=== PATIENT | male | born 1950 | race Caucasian/White ===

== ENCOUNTER 2016-08-09 12:20 | Day surgery (SDC) | payer MEDICARE, OTHER ==
[2016-08-09] MEDS ORDERED: GLUCAGON,HUMAN RECOMBINANT 1 MG VIAL IV ONE (12:44)
[2016-08-09] MEDS ORDERED: GLUCAGON,HUMAN RECOMBINANT 1 MG VIAL ONE (12:52)
--- NOTE | 2016-08-09 13:05 | ERNOTE ---
Medical Problem HPI - Narrative Date of Service: 08/09/16 - General Chief Complaint: General Assessment Time Seen by Provider: 08/09/16 12:37 Source: patient Exam Limitations: no limitations - Immun/Allergies/Home Medications Allergies/Adverse Reactions: Allergies No Known Allergies Allergy (Verified 08/09/16 12:35) Home Medications: HOME MEDICATIONS Lisinopril [Prinivil] 20 mg PO DAILY 07/17/12 [Last Taken Unknown] Simvastatin [Zocor] 40 mg PO HS 07/17/12 [Last Taken Unknown] Aspirin [Aspirin Enteric Coated] 81 mg PO DAILY 02/17/13 [Last Taken Unknown] Gabapentin [Neurontin (Gabapentin)] 300 mg PO HS 02/17/13 [Last Taken Unknown] Hum Insulin NPH/Reg Insulin Hm [Humulin 70-30 Pen] 8 unit SQ QPM 02/17/13 [Last Taken Unknown] Hum Insulin NPH/Reg Insulin Hm [Humulin 70-30 Pen] 16 unit SQ QAM 02/17/13 [ Last Taken Unknown] Insulin Glargine,Hum.rec.anlog [Lantus Solostar] 25 unit SQ DAILY 02/17/13 [ Last Taken Unknown] Pyridoxine HCl [Vitamin B-6] 100 mg PO BID 05/21/14 [Last Taken Unknown] - History of Present History Narrative: Pt. comes in with c/o food being stuck in his esophagus since 0630 this morning. Pt. states that he has had this problem previously and has had to have an EGD to assist with food removal. Pt. states that he tried to drink water and he was not able to swallow it and his saliva also accumulates and he has to spit it back up as well. Review of Systems - Review of Systems Constitutional: Present: no symptoms reported. Absent: recent illness, fever, chills, fatigue, malaise EYE: Present: no symptoms reported ENT: Present: no symptoms reported. Absent: nose pain, nose congestion, nasal drainage, sore throat Respiratory: Present: no symptoms reported. Absent: shortness of breath, cough , wheezing Cardiology: Present: no symptoms reported. Absent: chest pain, palpitations, edema Gastrointestinal/Abdominal: Present: other - food stuck in esophagus. Absent: nausea, vomiting, diarrhea Genitourinary: Present: no symptoms reported Musculoskeletal: Present: no symptoms reported. Absent: back pain, joint pain Skin: Present: no symptoms reported Neurological: Present: no symptoms reported. Absent: headache, dizziness/light- headedness, numbness, tingling All Other Systems: All systems neg except as marked - Patient's Past Medical History Patient History - Medical: Diabetes Type 2 Insulin Dependent Patient History - Cardiac/Respiratory: Hypertension, Hyperlipidemia Patient History - Cancer: No Hx of Cancer Patient History - Surgical Procedures: Other - Social History Living Situations: home Physical Exam - Physical Exam General Appearance: Present: wd/wn, alert, no apparent distress Eye Exam: Normal inspection: bilateral, PERRL: bilateral, EOMI: bilateral Ears, Nose, Throat: Present: normal ENT inspection, hearing grossly normal, normal pharynx Neck: Present: normal inspection, nontender. Absent: lymphadenopathy (R), lymphadenopathy (L) Respiratory: Present: no respiratory distress, normal breath sounds, no accessory muscle use, chest nontender, lungs clear Cardiovascular/Chest: Present: regular rate, rhythm, no murmur, normal peripheral pulses Gastrointestinal/Abdominal: Present: normal bowel sounds, nontender, nondistended, soft, no organomegaly Back Exam: Present: normal inspection Extremity Exam: Present: normal inspection Neurological Exam: Present: alert, oriented, normal mood/affect, no motor/ sensory deficits Skin Exam: Present: normal color, warm/dry. Absent: pallor, skin rash ED Progress - Date and Time Seen: Date and Time: 08/09/16 13:02 Attempted glucagon for food bolus impaction, unsuccessful so consulted Dr Andrade and he will come see the pt. 08/09/16 13:58 Dr Andrade in to see pt. will discharge pt. to inpatient care for egd with dilatation. - Vital Signs Patient's Vital Signs:: I have reviewed the patient's vital signs. Vital Signs: Vital Signs 08/09/16 12:31 Temperature 35.9 C L Pulse Rate 85 Respiratory 12 Rate Blood Pressure 150/84 O2 Sat by Pulse 99 Oximetry - Progress/Reassessment Chief Complaint: General Assessment Departure - Departure Clinical Impression: Foreign body in esophagus Qualifiers: Encounter type: initial encounter Qualified Code(s): T18.108A - Unspecified foreign body in esophagus causing other injury, initial encounter Disposition: [facility] [place] [facility] Condition: Good Referrals: Homero Abreu MD [Primary Care Provider] -
--- NOTE | 2016-08-09 14:00 | HP ---
Chief Complaint - Chief Complaint Date of Service: 08/09/16 Time of Service: 13:48 Chief Complaint: omlet stuck History of Present Illness: Was eating an omlet at 6;30 am and it got stuck at subxyphoid level---unable to handle secretions. Was given glucagon in ER and just passed. Long history of GERD with hiatal hernia. Esophageal obstruction from a pill in 2013 and had subsequent EGD and dilation---GE junction required dilation to pass scope and then dilated further to 20mm. He has had progressive solid food dysphagia before the obstruction today. - Patient's Past Medical History Patient History - Medical: Diabetes Type 2 Insulin Dependent Patient History - Cardiac/Respiratory: Hypertension, Hyperlipidemia Patient History - Cancer: No Hx of Cancer Patient History - Surgical Procedures: Other - Family History Family History:: no untoward family reactions to anesthesia, no familial bleeding tendencies - Social History Living Situations: home Review Of Systems (GEN) - Review of Systems Generalized/Overall Review: Present: No Symptoms Reported EENTM: Present: No Symptoms Reported Respiratory: Present: No Symptoms Reported. Absent: Cough, Shortness of Breath Cardiac: Present: No Symptoms Reported. Absent: Chest Pain, Palpitations Abdominal: Present: Other - progressive dysphagia for solid food. Absent: Abdominal Pain Genitourinary: Present: Nocturia - up once at night 2AM Musculoskeletal: Present: Joint Pain, Other - left knee pain and Dupuytren's contracture right 4th and 5th fingers Skin: Present: No Symptoms Reported Allergies/Adverse Reactions: Allergies Allergy/AdvReac Type Severity Reaction Status Date / Time No Known Allergies Allergy Verified 08/09/16 12:35 Home Medications: HOME MEDICATIONS Lisinopril [Prinivil] 20 mg PO DAILY 07/17/12 [Last Taken Unknown] Simvastatin [Zocor] 40 mg PO HS 07/17/12 [Last Taken Unknown] Aspirin [Aspirin Enteric Coated] 81 mg PO DAILY 02/17/13 [Last Taken Unknown] Gabapentin [Neurontin (Gabapentin)] 300 mg PO HS 02/17/13 [Last Taken Unknown] Hum Insulin NPH/Reg Insulin Hm [Humulin 70-30 Pen] 8 unit SQ QPM 02/17/13 [Last Taken Unknown] Hum Insulin NPH/Reg Insulin Hm [Humulin 70-30 Pen] 16 unit SQ QAM 02/17/13 [ Last Taken Unknown] Insulin Glargine,Hum.rec.anlog [Lantus Solostar] 25 unit SQ DAILY 02/17/13 [ Last Taken Unknown] Pyridoxine HCl [Vitamin B-6] 100 mg PO BID 05/21/14 [Last Taken Unknown] Exam - Exam Vital Signs: Vital Signs - Last Taken Temp 35.9 C L 08/09/16 12:31 Pulse 85 08/09/16 12:31 Resp 12 08/09/16 12:31 BP 150/84 08/09/16 12:31 Pulse Ox 99 08/09/16 12:31 Constitutional: Present: Alert, Oriented x3, Cooperative, No distress ENT Exam: Present: normal ENT inspection, other - multiple missing teeth--done loose Eye Exam: bilateral eye: normal inspection Neck: Present: full range of motion Back Exam: Present: normal inspection Respiratory: Present: lungs clear, normal breath sounds, no respiratory distress Cardiovascular/Chest: Present: normal peripheral pulses, regular rate, rhythm, no JVD, no murmur Peripheral Pulses: carotid (R): 4+, carotid (L): 4+, dorsalis-pedis (R): 4+, dorsalis-pedis (L): 4+, radial (R): 4+, radial (L): 4+ Abdomen: Present: Normal bowel sounds, soft, nontender, other - obese /Rectal: Present: Exam deferred Extremity: Present: normal range of motion, normal capillary refill, other - Dupuytren's contracture right 4th and 5th fingers Skin Exam: Present: normal color Neurologic: Present: segmental paving supervisor II-XII nml as tested, normal cerebellar test, no motor/ sensory deficits Appearance: Present: appropriate appearance, appropriate insight Eye contact: Present: cooperative, good eye contact, normal speech Thoughts: Present: normal thought pattern Assessment/Plan - Assessment/Plan (1) Foreign body in esophagus Assessment: He has passed the FB, however has history of hiatal hernia and esophageal stricture requiring dilation and progressive dysphagia before today's episode of obstruction. EGD with dilation was explained and he is familiar with the procedure including risks and possible complications. Questions answered and informed consent obtained for EGD with dilation. Problem: Acute
[2016-08-09] MEDS ORDERED: RINGERS SOLUTION,LACTATED 1,000 ML IV PRN (14:02)
[2016-08-09] MEDS ORDERED: RINGERS SOLUTION,LACTATED 1,000 ML IV ONE (16:00)
[2016-08-09] MEDS ORDERED: PANTOPRAZOLE SODIUM 40 MG in NORMAL SALINE 100 ML IV ONE (16:30)
[2016-08-09] MEDS ORDERED: PANTOPRAZOLE SODIUM 40 MG/100 ML PIGGYBACK IV ONE (16:35)
[2016-08-09 17:15] VITALS: BP 153/78
--- NOTE | 2016-08-09 18:30 | OR ---
Operative Report - Dictated Report Narrative: Operative Report Date of operation: 08/09/2016 Preoperative diagnosis: Esophageal stricture with recent obstruction Postoperative diagnosis: Esophagitis with stricture. Hiatal hernia. Gastropathy (pathology and CLOtest pending Operation: EGD with biopsies and esophageal balloon dilation to 18 mm Surgeon: Dr Andrade Anesthesia: TERRY PERKINS CRNA Indications for procedure: The patient is a 66-year-old male presented to the emergency room with symptoms of esophageal obstruction from an omelette. He has a past history of esophageal obstruction and stricture requiring dilation. While waiting for the procedure in the emergency room, the material passed from the esophagus and he is brought for exam. Findings: Esophagitis with stricture and possible Campos's esophagus ( pathology pending) successfully dilated to 18 mm. Hiatal hernia. Gastropathy ( pathology and CLOtest pending) Narrative of procedure: The patient was identified preoperatively, and prior to the administration of anesthetic a multidisciplinary timeout was observed With the patient in the recumbent position, a bite-block was placed, intravenous sedation was administered, and the patient's eyes covered with a towel. The flexible fiberoptic gastroscope was advanced into the posterior pharynx which appeared normal. The supraglottic larynx appeared normal. The cords appeared normal, moved well, and opposed in the midline. The scope was advanced under direct vision into the proximal esophagus which appeared normal. The esophagus appeared freely distensible with normal mucosa. The esophageal mucosa appeared normal down to the gastroesophageal junction which was located in the chest. There was marked inflammation and stricture formation with exuberant tissue suggestive of Campos's esophagus. The opening was too small to admit the gastroscope. A balloon dilator was placed across the stricture which was dilated to 15 mm. There was minimal bleeding. The scope could then be advanced through the area into a moderate sized sliding hiatal hernia and then into the stomach proper. The stomach was then insufflated with air. There was cabrera gastritic erythema present but no mimi ulcers or neoplastic lesions were apparent including a retroflexed view of the gastric fundus. The hiatal hernia was clearly demonstrated. The scope was redirected toward the pylorus. The pylorus appeared patent. The scope was advanced into the duodenal bulb which appeared normal. The scope was advanced further to the horizontal portion of the duodenum which appeared normal, specifically the villous architecture appeared well preserved and clear bile was present. The scope was slowly withdrawn through the duodenal bulb with confirmation that no active ulcer was present. The scope was withdrawn into the stomach and member service representative biopsies of gastric mucosa obtained for CLOtest and pathology. The biopsy sites were seen to be hemostatic. The insufflated air was removed from the stomach and the scope withdrawn to just above the GE junction. A new balloon was placed across this area and inflated to 18 mm. There was no appreciable bleeding. Biopsies were obtained. The biopsy sites were seen to be hemostatic. The area appeared widely patent. The scope was readvanced into the stomach which was emptied of insufflated air. The scope was withdrawn slowly through the dilated area with confirmation of hemostasis and then withdrawn from the patient, and the procedure terminated. The patient tolerated the anesthetic and procedure well without complication and was transferred back to the ambulatory surgery area awake and in stable condition. The patient remained stable throughout a period of postoperative observation, was able to tolerate by mouth intake, and was up without assistance. I shared the operative findings with him, and he was given copies of the photographs which appear in the medical record. He was given a single dose of Protonix 40 mg IV prior to discharge. He was discharged home with instructions not to engage in hazardous activity today, but may return to normal activity tomorrow. He is to maintain a liquid or soft diet for 24 hours and then advance diet as tolerated. He is to continue medications as listed in the history and physical exam. I made arrangements to contact the patient with biopsy reports and will make further recommendation based upon that result. Reviewed and electronically signed
== END 2016-08-09 14:01 | disposition home or self-care (01) ==
LOC: ER 12:20 → AMB 14:00
PROVIDERS: ATTEND Surgery
PROC: 0DB68ZX Excision of Stomach, Via Natural or Artificial Opening Endoscopic, Diagnostic (ICD-10-PCS; 2016-08-09)
PROC: 0D748ZZ Dilation of Esophagogastric Junction, Via Natural or Artificial Opening Endoscopic (ICD-10-PCS; 2016-08-09)
PROC: 0DB48ZX Excision of Esophagogastric Junction, Via Natural or Artificial Opening Endoscopic, Diagnostic (ICD-10-PCS; principal; 2016-08-09 14:45)
DX: K22.2 Esophageal obstruction (principal); K44.9 Diaphragmatic hernia without obstruction or gangrene; K22.70 Barrett's esophagus without dysplasia; K21.0 Gastro-esophageal reflux disease with esophagitis; E11.9 Type 2 diabetes mellitus without complications; I10 Essential (primary) hypertension; E78.5 Hyperlipidemia, unspecified; Z68.31 Body mass index [BMI] 31.0-31.9, adult

== ENCOUNTER 2017-05-01 22:14 | Day surgery (SDC) | payer MEDICARE, OTHER ==
[~2017-05-01 22:14] MED LIST: RINGER'S SOLUTION,LACTATED 1,000 ML IV ONE
[2017-05-01] MEDS ORDERED: GLUCAGON,HUMAN RECOMBINANT 1 MG VIAL ONE (22:34)
[2017-05-01] MEDS ORDERED: GLUCAGON,HUMAN RECOMBINANT 1 MG VIAL IV ONE (22:35)
[2017-05-01] MEDS ORDERED: DEXTROSE 4 GM/TAB BTL PO ONE (22:36)
[2017-05-01] MEDS ORDERED: DEXTROSE 5 % IN WATER 1,000 ML IV PRN (23:00)
--- NOTE | 2017-05-01 23:02 | ERNOTE ---
Medical Problem HPI - Narrative Date of Service: 05/01/17 - General Chief Complaint: Foreign Body Time Seen by Provider: 05/01/17 22:58 - Immun/Allergies/Home Medications Immunizations: IMMUNIZATION HX Immunizations Up to Date Yes History of Influenza Vaccine No Hx Pneumococcal Vaccination Yes Allergies/Adverse Reactions: Allergies No Known Allergies Allergy (Verified 05/01/17 22:24) Home Medications: HOME MEDICATIONS Lisinopril [Prinivil] 20 mg PO DAILY 07/17/12 [Last Taken Unknown] Simvastatin [Zocor] 40 mg PO HS 07/17/12 [Last Taken Unknown] Aspirin [Aspirin Enteric Coated] 81 mg PO DAILY 02/17/13 [Last Taken Unknown] Hum Insulin NPH/Reg Insulin Hm [Humulin 70-30 Pen] 8 unit SQ QPM 02/17/13 [Last Taken Unknown] Hum Insulin NPH/Reg Insulin Hm [Humulin 70-30 Pen] 16 unit SQ QAM 02/17/13 [ Last Taken Unknown] Insulin Glargine,Hum.rec.anlog [Lantus Solostar] 25 unit SQ DAILY 02/17/13 [ Last Taken Unknown] - History of Present History Narrative: This is a 66-year-old male with a past history of impacted meat bolus is status post dilatation. He comes to the ER proximally 4 hours after eating pork chops. He is unable to swallow anything. The patient did take his insulin right before he ate. He has not been able to eat because of pork Got caught. He has been unable to swallow anything other than a little bit of his secretions. He is feeling a bit shaky. Blood sugar was 67. He has no other complaints Review of Systems - Review of Systems Constitutional: Present: other - just feels shaky EYE: Present: no symptoms reported ENT: Present: no symptoms reported Respiratory: Present: no symptoms reported Cardiology: Present: no symptoms reported Gastrointestinal/Abdominal: Present: no symptoms reported Genitourinary: Present: no symptoms reported Musculoskeletal: Present: no symptoms reported Skin: Present: no symptoms reported Neurological: Present: no symptoms reported Endocrine: Present: no symptoms reported Hematologic/Lymphatic: Present: no symptoms reported Psych: Present: no symptoms reported All Other Systems: All systems neg except as marked - Patient's Past Medical History Patient History - Medical: Diabetes Type 2 Insulin Dependent Patient History - Cardiac/Respiratory: Hypertension, Hyperlipidemia Patient History - Cancer: No Hx of Cancer Patient History - Surgical Procedures: EGD, Orthopedic Patient History - Other: None - Social History Living Situations: home Abuse History: No History of abuse Psych History: No pertinent hx Smoking Status: Never smoker Alcohol Use: none Drug Use: none - Immunizations Immunizations Up to Date: Yes Hx Pneumococcal Vaccination: Yes History of Influenza Vaccine: No Physical Exam - Physical Exam General Appearance: Present: wd/wn, alert, no apparent distress Head Exam: Present: normal inspection, no evidence of injury Eye Exam: Normal inspection: bilateral, PERRL: bilateral Ears, Nose, Throat: Present: normal ENT inspection, normal pharynx Neck: Present: normal inspection, nontender Respiratory: Present: no respiratory distress, normal breath sounds, no accessory muscle use, lungs clear Cardiovascular/Chest: Present: regular rate, rhythm, no murmur, normal peripheral pulses Gastrointestinal/Abdominal: Present: normal bowel sounds, nontender, nondistended, soft Back Exam: Present: normal inspection, normal range of motion, no CVA tenderness Extremity Exam: Present: normal inspection, normal range of motion, no edema Neurological Exam: Present: alert, oriented, normal mood/affect Skin Exam: Present: normal color, warm/dry Lymphatic Exam: Present: no adenopathy ED Progress - Vital Signs Patient's Vital Signs:: I have reviewed the patient's vital signs. Vital Signs: Vital Signs 05/01/17 05/01/17 22:21 22:24 Temperature 36.4 C 36.4 C Pulse Rate 80 80 Respiratory 18 18 Rate Blood Pressure 186/93 186/93 O2 Sat by Pulse 100 100 Oximetry - Progress/Reassessment Chief Complaint: Foreign Body Progress Note-Subjective: 05/01/17 23:00 I informed the surgeon about the patient. He asked me to call in the endoscopy team. The patient failed glucagon. Departure Clinical Impression: Foreign body alimentary tract Qualifiers: Encounter type: initial encounter Qualified Code(s): T18.9XXA - Foreign body of alimentary tract, part unspecified, initial encounter - Departure Disposition: [facility] Condition: Good
[2017-05-01] MEDS ORDERED: DEXTROSE 5%-LACTATED RINGERS 1,000 ML IV PRN (23:16)
[2017-05-01] MEDS ORDERED: ceFAZolin SODIUM 2 GM in DEXTROSE 5 % IN WATER 50 ML IV PRN ×2 (23:19)
[2017-05-01] MEDS ORDERED: ceFAZolin SODIUM/DEXTROSE,ISO 2 GM/50 ML BAG IV SCH (23:45)
--- NOTE | 2017-05-01 23:45 | HP ---
Chief Complaint - Chief Complaint Date of Service: 05/01/17 Time of Service: 23:28 Chief Complaint: pork chop stuck in esophagus History of Present Illness: Was eating supper, got through 1/2 baked potatoe and 1/2 pork chop. A piece of pork chop stuck ant the suxyphoid level and will not pass or come up. cannot handle saliva. Has had episodes of solid food sticking for awhile and then passing. Happens about every week to 10 days and is getting more frequent. He had previous episode of obstruction in August which required dilation. He has not seen a provider since. Is not on PPI, but takes Gaviscon. - Patient's Past Medical History Patient History - Medical: Diabetes Type 2 Insulin Dependent, Other - previous esophageal obstruction and dilation Patient History - Cardiac/Respiratory: Hypertension, Hyperlipidemia Patient History - Cancer: No Hx of Cancer Patient History - Surgical Procedures: EGD, Orthopedic Patient History - Other: None - Family History Family History:: no untoward family reactions to anesthesia - Social History Living Situations: home Abuse History: No History of abuse Psych History: No pertinent hx Smoking Status: Never smoker Alcohol Use: none Drug Use: none - Immunizations Immunizations Up to Date: Yes Hx Pneumococcal Vaccination: Yes History of Influenza Vaccine: No Review Of Systems (GEN) - Review of Systems Generalized/Overall Review: Present: No Symptoms Reported EENTM: Present: No Symptoms Reported Respiratory: Present: No Symptoms Reported Cardiac: Present: No Symptoms Reported Abdominal: Present: Other - heartburn and dysphagia Genitourinary: Present: Nocturia - 2-3 times Musculoskeletal: Present: No Symptoms Reported Neurological: Present: No Symptoms Reported Skin: Present: No Symptoms Reported Endocrine: Present: Other - manages blood sugar with sliding scale Immunizations: IMMUNIZATION HX Immunizations Up to Date Yes History of Influenza Vaccine No Hx Pneumococcal Vaccination Yes Allergies/Adverse Reactions: Allergies Allergy/AdvReac Type Severity Reaction Status Date / Time No Known Allergies Allergy Verified 05/01/17 22:24 Home Medications: HOME MEDICATIONS Lisinopril [Prinivil] 20 mg PO DAILY 07/17/12 [Last Taken Unknown] Simvastatin [Zocor] 40 mg PO HS 07/17/12 [Last Taken Unknown] Aspirin [Aspirin Enteric Coated] 81 mg PO DAILY 02/17/13 [Last Taken Unknown] Hum Insulin NPH/Reg Insulin Hm [Humulin 70-30 Pen] 8 unit SQ QPM 02/17/13 [Last Taken Unknown] Hum Insulin NPH/Reg Insulin Hm [Humulin 70-30 Pen] 16 unit SQ QAM 02/17/13 [ Last Taken Unknown] Insulin Glargine,Hum.rec.anlog [Lantus Solostar] 25 unit SQ DAILY 02/17/13 [ Last Taken Unknown] Exam - Exam Vital Signs: Vital Signs - Last Taken Temp 36.4 C 05/01/17 22:24 Pulse 85 05/01/17 23:22 Resp 18 05/01/17 23:22 BP 183/87 05/01/17 23:22 Pulse Ox 97 05/01/17 23:22 Constitutional: Present: Alert, Oriented x3, Cooperative, No distress ENT Exam: Present: other - very poor dentition Eye Exam: bilateral eye: normal inspection Neck: Present: full range of motion, normal inspection Back Exam: Present: normal inspection Respiratory: Present: lungs clear, no respiratory distress Cardiovascular/Chest: Present: regular rate, rhythm, other - pitting BK bilat. cold feet, edema Abdomen: Present: nontender, distended /Rectal: Present: Exam deferred Extremity: Present: normal range of motion, pedal edema, other - cold feet Skin Exam: Present: normal color Neurologic: Present: well cleaner II-XII nml as tested, normal cerebellar test, no motor/ sensory deficits Appearance: Present: appropriate appearance, appropriate insight Eye contact: Present: cooperative, good eye contact, normal speech Thoughts: Present: normal thought pattern Assessment/Plan - Assessment/Plan (1) Foreign body in esophagus Assessment: Discussed esophagoscopy for removal of the foreign body with dilation if possible (depends upon inflammation) Risk of perforation and aspiration discussed Questions answered to his apparent satisfaction and informed consent obtained. SCD's IV Ancef Will use [id number] Problem: Acute
[2017-05-01] MEDS ORDERED: DEXTROSE 5%-LACTATED RINGERS 1,000 ML IV ONE (23:50)
[2017-05-01] MEDS ORDERED: ceFAZolin SODIUM 1 GM VIAL IV ONE (23:55)
[2017-05-02] MEDS ORDERED: RINGER'S SOLUTION,LACTATED 1,000 ML IV PRN (00:33)
[2017-05-02] MEDS ORDERED: PANTOPRAZOLE SODIUM 40 MG in NORMAL SALINE 100 ML IV ONE (00:33)
[2017-05-02 03:09] VITALS: BP 173/87
--- NOTE | 2017-05-02 07:26 | OR ---
Operative Report - Dictated Report Narrative: Operative Report Date of operation: 05/02/2017 Preoperative diagnosis: Esophageal obstruction from foreign body Postoperative diagnosis: Esophageal obstruction from foreign body (pork). Esophageal stenosis Operation: Esophagogastroscopy with removal of foreign body. Esophageal balloon dilation to 15 mm. Gastric and GE junction biopsies Surgeon: Dr Andrade Anesthesia: GENERAL ENDOTRACHEAL GRISELDA OGDEN CRNA Indications for procedure: The patient is a 66-year-old male who presented to the emergency room with esophageal obstruction from a piece of swallowed pork. He has a previous history of esophageal obstruction in April 2014 from an ibuprofen tablet. He underwent subsequent esophageal dilation to 20 mm in May 2014. He presented again in August 2016 with esophageal obstruction requiring endoscopy for removal. He had dilation again at that time. He has had no subsequent follow-up. He reports that recently he has had increasing bouts of partial esophageal obstruction. Findings: Esophageal obstruction from a piece of pork with marked narrowing of the GE junction (pathology pending). Successful dilation to 15 cm. Narrative of procedure: The patient was identified preoperatively, and prior to the administration of anesthetic a multidisciplinary timeout was observed With the patient in the recumbent position, SCDs were placed, 2 g of intravenous Ancef administered, and rapid sequence endotracheal intubation performed. General endotracheal anesthetic was administered. The flexible fiberoptic gastroscope was advanced into the posterior pharynx which appeared normal. The endotracheal tube was seen to be in good position. The supraglottic larynx appeared normal. The scope was advanced under direct vision into the proximal esophagus which appeared normal, but was filled with saliva indicating distal obstruction. The esophagus appeared patulous and freely distensible with normal mucosa. Distally there was food material and liquid which could be bypassed. The esophageal mucosa appeared normal down to the gastroesophageal junction which markedly stenotic and inflamed. The area would not immediately admit the gastroscope however with gentle pressure the stomach was entered. The stomach was full of food. The scope was withdrawn to the distal esophagus and the obstructing bolus of pork grasped with a snare and withdrawn in conjunction with the scope. The scope was then readvanced down the esophagus to the GE junction which was dilated in stages to 15 mm. The area was then biopsied. The biopsy site appeared hemostatic. The stomach was again entered and a biopsy of gastric mucosa obtained and submitted for CLOtest. The biopsy site was seen to be hemostatic. The stomach was emptied of insufflated air. The scope was slowly withdrawn through the GE junction with confirmation of hemostasis and patency. The patient was then placed in the sitting position and the esophagus cleared of all food and liquid material. It was then collapsed indicating the relief of obstruction. The esophagus did appear patulous which suggested chronic partial obstruction. Mucosa otherwise appeared normal with exception of the inflammation at the GE junction. The scope was withdrawn from the patient and the procedure terminated. The patient tolerated the anesthetic and procedure well without complication and was transferred back to the floor for after-hours recovery awake and in stable condition. The patient remained stable throughout a period of postoperative observation, was able to tolerate po intake, and was up without assistance. I shared the operative findings with him and his , and he was given copies of the photographs which appear in the medical record. He was given a single dose of Protonix 40 mg IV prior to discharge. He was discharged home with instructions not to engage in hazardous activity today, but may return to normal activity tomorrow and advance diet as tolerated. He is to continue medications as listed in the history and physical exam. I made arrangements to contact the patient with the biopsy reports and will make further recommendation based upon that result. Arrangements were made for him to follow-up with Dr. Baldemar Tesfaye, and will arrange interval reexam with dilation to a larger diameter following resolution of current inflammation. Reviewed and electronically signed
== END 2017-05-01 23:15 | disposition home or self-care (01) ==
LOC: ER 22:14 → AMB 23:14
PROVIDERS: ATTEND Surgery
PROC: 0D748ZZ Dilation of Esophagogastric Junction, Via Natural or Artificial Opening Endoscopic (ICD-10-PCS; 2017-05-01)
PROC: 0DB48ZX Excision of Esophagogastric Junction, Via Natural or Artificial Opening Endoscopic, Diagnostic (ICD-10-PCS; 2017-05-01)
PROC: 0DB68ZX Excision of Stomach, Via Natural or Artificial Opening Endoscopic, Diagnostic (ICD-10-PCS; 2017-05-01)
PROC: 0DC38ZZ Extirpation of Matter from Lower Esophagus, Via Natural or Artificial Opening Endoscopic (ICD-10-PCS; principal; 2017-05-01 23:34)
DX: T18.128A Food in esophagus causing other injury, initial encounter (principal); K22.2 Esophageal obstruction; I10 Essential (primary) hypertension; E11.9 Type 2 diabetes mellitus without complications; E78.5 Hyperlipidemia, unspecified; Z68.32 Body mass index [BMI] 32.0-32.9, adult

== ENCOUNTER 2017-06-29 06:11 | Day surgery (SDC) | payer MEDICARE, OTHER ==
[~2017-06-29 06:11] MED LIST changes: -RINGER'S SOLUTION,LACTATED 1,000 ML IV ONE; +RINGER'S SOLUTION,LACTATED 1,000 ML IV PRN
[2017-06-29] MEDS ORDERED: RINGER'S SOLUTION,LACTATED 1,000 ML IV ONE (06:38)
[2017-06-29] MEDS ORDERED: PANTOPRAZOLE SODIUM 40 MG in NORMAL SALINE 100 ML IV ONE (07:18)
[2017-06-29] MEDS ORDERED: RINGER'S SOLUTION,LACTATED 1,000 ML IV PRN (07:18)
[2017-06-29] MEDS ORDERED: PANTOPRAZOLE SODIUM 40 MG/100 ML PIGGYBACK IV ONE (07:46)
--- NOTE | 2017-06-29 08:37 | OR ---
Operative Report - Dictated Report Narrative: Operative Report Date of operation: 06/29/2017 Preoperative diagnosis: Esophageal stenosis. History of Campos's esophagus and gastropathy. Postoperative diagnosis: Esophageal stenosis. Gastropathy (pathology and CLOtest pending) Operation: EGD with biopsies and balloon dilation of the GE junction to 18 mm Surgeon: Dr Andrade Anesthesia: TERRY ORNELAS CRNA Indications for procedure: The patient is a 67-year-old male who underwent emergency esophagoscopy for removal of impacted pork bolus. He was found to have esophageal stenosis and CLOtest negative gastropathy. Biopsy GE junction revealed Campos's esophagus with no dysplasia. He did take Protonix 40 mg daily for 30 days but stopped. Findings: Narrowing at the GE junction. Significant gastropathy (pathology and CLOtest pending) Narrative of procedure: The patient was identified preoperatively, and prior to the administration of anesthetic a multidisciplinary timeout was observed With the patient in the recumbent position, a bite-block was placed, intravenous sedation administered, and the patient's eyes covered with a towel. The flexible fiberoptic gastroscope was advanced into the posterior pharynx which appeared normal. The supraglottic larynx appeared normal. The cords appeared normal, moved well, and opposed in the midline. The scope was advanced under direct vision into the proximal esophagus which appeared normal. The esophagus appeared freely distensible with normal mucosa. The esophageal mucosa appeared normal down to the gastroesophageal junction which was narrowed with edema. The scope was advanced into the stomach which was insufflated with air. 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 A retroflexed view of the gastric fundus showed a normal gastric side of the GE junction and revealed no additional lesions. Scope was redirected toward the pylorus. The pylorus appeared patent. The scope was advanced into the duodenal bulb which appeared normal. The scope was advanced further to the horizontal portion of the duodenum which appeared normal , specifically the villous architecture appeared well preserved and clear bile was present. The scope was slowly withdrawn through the duodenal bulb with confirmation that no active ulcer was present. The scope was withdrawn into the stomach and territory account representative biopsies of gastric mucosa obtained for CLOtest and pathology. The biopsy sites were seen to be hemostatic. The insufflated air was removed from the stomach. A balloon dilator was deployed and withdrawn to lie across the GE junction which was then dilated in stages to 18 mm. The area then freely admitted the balloon. There was no bleeding. The stomach was again emptied of insufflated air, the scope withdrawn from the patient, and the procedure terminated. The patient tolerated the anesthetic and procedure well without complication and was transferred back to the ambulatory surgery area awake and in stable condition. The patient remained stable throughout a period of postoperative observation, was able to tolerate po intake, and was up without assistance. I shared the operative findings with him and his , and he was given copies of the photographs which appear in the medical record. He was given a single dose of Protonix 40 mg IV prior to discharge. He was discharged home with instructions not to engage in hazardous activity today, but may return to normal activity tomorrow and advance diet as tolerated. He is to begin omeprazole 20 mg by mouth twice a day and call the office with progress reports. He is to continue his other medications as listed in the history and physical exam. I made arrangements to contact the patient with the biopsy reports and will make further recommendation based upon that result. Reviewed and electronically signed
[2017-06-29 08:54] VITALS: BP 150/84
== END 2017-06-29 06:12 | disposition home or self-care (01) ==
LOC: AMB 06:11
PROVIDERS: ATTEND Surgery
PROC: 0D748ZZ Dilation of Esophagogastric Junction, Via Natural or Artificial Opening Endoscopic (ICD-10-PCS; 2017-06-29)
PROC: 0DB68ZX Excision of Stomach, Via Natural or Artificial Opening Endoscopic, Diagnostic (ICD-10-PCS; principal; 2017-06-29 07:00)
DX: K22.2 Esophageal obstruction (principal); K29.70 Gastritis, unspecified, without bleeding; I10 Essential (primary) hypertension; E11.9 Type 2 diabetes mellitus without complications; J45.20 Mild intermittent asthma, uncomplicated; K21.9 Gastro-esophageal reflux disease without esophagitis; E78.5 Hyperlipidemia, unspecified; M19.90 Unspecified osteoarthritis, unspecified site; E66.9 Obesity, unspecified; Z68.32 Body mass index [BMI] 32.0-32.9, adult